=== PATIENT | male | born 1995 | race Two or more races ===

== ENCOUNTER 2016-12-02 21:08 | Emergency (ER) | payer SELFPAY ==
[2016-12-02] MEDS ORDERED: Polyethylene Glycol 3350 Powder 17 GM Packet PO ONE (21:24)
[2016-12-02 21:28] VITALS: BP 137/81
--- NOTE | 2016-12-02 21:29 | EDM.PDOC ---
ED HPI GENERAL MEDICAL PROBLEM - General Chief Complaint: Gastrointestinal Problem Stated Complaint: CONSTIPATED Time Seen by Provider: 12/02/16 21:15 Source of Information: Reports: Patient History Limitations: Reports: No Limitations - History of Present Illness INITIAL COMMENTS - FREE TEXT/NARRATIVE: José Miguel reports small scybalus stools over the past 4 days in spite of efforts at bowel cleansing including OTC products. There is minor suprapubic pain, crampy in nature, without BRB. He has a PMH of constipation in the past. Past Medical History Gastrointestinal History: Reports: Chronic Constipation ED ROS GENERAL - Review of Systems Review Of Systems: See Below Constitutional: Reports: No Symptoms HEENT: Reports: No Symptoms Respiratory: Reports: No Symptoms Cardiovascular: Reports: No Symptoms Endocrine: Reports: No Symptoms GI/Abdominal: Reports: Constipation : Reports: No Symptoms Musculoskeletal: Reports: No Symptoms Skin: Reports: No Symptoms Neurological: Reports: No Symptoms Psychiatric: Reports: No Symptoms Hematologic/Lymphatic: Reports: No Symptoms Immunologic: Reports: No Symptoms ED EXAM, GI/ABD - Physical Exam Exam: See Below Exam Limited By: No Limitations General Appearance: Alert, WD/WN, No Apparent Distress Neck: Normal Inspection, Non-Tender Respiratory/Chest: Lungs Clear, Normal Breath Sounds Cardiovascular: Regular Rate, Rhythm, No Murmur GI/Abdominal: Normal Bowel Sounds, Soft, Non-Tender, No Organomegaly, No Distention, No Mass (Male) Exam: Normal Inspection Rectal (Males) Exam: Deferred Back Exam: Normal Inspection Extremities: Normal Inspection Neurological: Alert, Oriented, CN II-XII Intact, Normal Gait, No Motor/Sensory Deficits Psychiatric: Normal Affect, Normal Mood Skin Exam: Warm, Dry Lymphatic: No Adenopathy Course - Vital Signs Text/Narrative:: José Miguel was administered MiraLax 17 gm in water prior to leaving the ED. - Orders/Labs/Meds Orders: Active Orders 24 hr Category Date Time Status Polyethylene Glycol 3350 [MiraLAX] Med 12/02/16 21:24 Once 17 gm PO ONETIME ONE Departure - Departure Time of Disposition: 21:30 Disposition: Home, Self-Care 01 Condition: fair Clinical Impression: Constipation Qualifiers: Constipation type: unspecified constipation type Qualified Code(s): K59.00 - Constipation, unspecified - Discharge Information Forms: ED Department Discharge - Problem List & Annotations (1) Constipation SNOMED Code(s): 54104558 Code(s): K59.00 - CONSTIPATION, UNSPECIFIED Status: Acute Current Visit: Yes Annotation/Comment:: I advised daily MiraLax until fecal stream re established. Qualifiers: Constipation type: unspecified constipation type Qualified Code(s): K59.00 - Constipation, unspecified - Problem List Review Problem List Initiated/Reviewed/Updated: Yes - My Orders Last 24 Hours: My Active Orders 12/02/16 21:24 Polyethylene Glycol 3350 [MiraLAX] 17 gm PO ONETIME ONE - Assessment/Plan Last 24 Hours: My Active Orders 12/02/16 21:24 Polyethylene Glycol 3350 [MiraLAX] 17 gm PO ONETIME ONE Plan: Follow up with PCP.
== END 2016-12-02 21:39 | disposition home or self-care (01) ==
LOC: FB.ED 21:08
DX: K59.00 Constipation, unspecified (principal)
CPT/HCPCS: 99283; A9270; 99282